=== PATIENT | female | born 1990 | race Caucasian/White ===

== ENCOUNTER 2016-10-22 15:33 | Emergency (ER) | payer BC ==
[2016-10-22 15:46] VITALS: BP 134/83
--- NOTE | 2016-10-22 16:32 | EDM.PDOC ---
ED HPI HEADACHE COMPLAINT - General Chief Complaint: Headache Stated Complaint: HEADACHE, BACK OF HEAD, VISION CHANGES Time Seen by Provider: 10/22/16 16:02 Source of Information: Reports: Patient History Limitations: Reports: No limitations - History of Present Illness INITIAL COMMENTS - FREE TEXT/NARRATIVE: Patient presents for evaluation and treatment of a headache. Patient reports that the headache is located in the right posterior occipital area. She states that she's been having headaches for the last 6 weeks. She says that they are coming and going but feels they're overall worsening in severity. She describes the ache as a throbbing sensation. She describes the pain as "pings of pain". She became concerned when her last 2 days she's felt she has had some blurry vision and has felt that she is having difficulty concentrating and "brain fog ". Patient does not have a history of migraine headaches. She said that she's taken some ibuprofen occasionally but this has not helped with her headaches. She denies any changes in speech, gait, lightheadedness, photophobia, phonophobia, seizures, nausea or vomiting. She denies any recent illnesses. She reports associated symptoms of dizziness. Patient reports that her last menstrual period was January 27, 2015. She denies any chance of . She is currently breast-feeding an [id number] male. Patient wears contacts. Patient reports she has an appointment with her PCP tomorrow, but was more concerned about her symptoms which prompted her ER visit today. Timing/Duration: Reports: waxing/waning, getting worse Location: Reports: occipital (right) Associated Symptoms: Reports: vision changes. Denies: aura, photophobia - Related Data Allergies/ADRs: Allergies Allergy/AdvReac Type Severity Reaction Status Date / Time sulfamethoxazole Allergy Hives Verified 11/07/15 17:55 [From ] trimethoprim [From ] Allergy Hives Verified 11/07/15 17:55 Home Meds: Home Meds Ibuprofen [Motrin] 600 mg PO Q4H PRN #0 tablet 11/09/15 [Rx] Levothyroxine [Synthroid] 50 mcg PO ACBREAKFAST 10/22/16 [History] Sertraline [Zoloft] 25 mg PO DAILY 10/22/16 [History] Past Medical History [employer] History: Reports: Other OB/BYN History: Increased blood pressure Neurological History: Reports: Headaches, chronic Psychiatric History: Reports: Anxiety Other Psychiatric History: Only with Endocrine/Metabolic History: Reports: Hypothyroidism - Past Surgical History HEENT Surgical History: Reports: Oral surgery, Tonsillectomy Social & Family History - Family History Neurological: Reports: Migraines Other Neurological Family History: mother - Tobacco Use Smoking Status *Q: Never Smoker - Caffeine Use Caffeine Use: Reports: Coffee - Recreational Drug Use Recreational Drug Use: No ED ROS GENERAL - Review of Systems Review Of Systems: See Below Constitutional: Reports: malaise. Denies: fever, chills HEENT: Reports: Vision change (reports blurry vision) Cardiovascular: Denies: Lightheadedness GI/Abdominal: Denies: Nausea, Vomiting Musculoskeletal: Denies: neck pain Neurological: Reports: dizziness, headache, other (denies any photophobia or phonophobia). Denies: seizure, change in speech, gait disturbance - Physical Exam Exam: See Below Exam Limited By: No limitations General Appearance: alert, WD/WN, no apparent distress Eye Exam: bilateral eye: EOMI, PERRL Ears: normal external exam, normal canal, hearing grossly normal, normal TMs Nose: normal inspection Throat/Mouth: Normal inspection, Normal lips, Normal teeth, Normal gums, Normal oropharynx, Normal voice, No airway compromise Head Exam: atraumatic, normocephalic Neck: normal inspection, supple, non-tender Respiratory/Chest: no respiratory distress, lungs clear, normal breath sounds Cardiovascular: normal peripheral pulses, regular rate, rhythm, no murmur Neuro Exam (Abbreviated): alert, oriented, CN II-XII intact, normal cognition, normal gait, no motor/sensory deficits, other (normal finger to nose testing, normal heel to streeter testing). No: confused, slow to respond Psychiatric: normal affect, normal mood Skin Exam: Warm, Dry, Normal color Course - Vital Signs Last Recorded V/S: Last Vital Signs Temp 37.1 C 10/22/16 15:42 Pulse 70 10/22/16 15:42 Resp 16 10/22/16 15:42 BP 134/83 10/22/16 15:42 Pulse Ox 100 10/22/16 15:42 - Orders/Labs/Meds Orders: Active Orders 24 hr Category Date Time Status FREE T3 [REF] Stat Lab 10/22/16 16:31 Received Labs: Laboratory Tests 10/22/16 10/22/16 10/22/16 Range/Units 16:31 16:31 16:31 WBC 6.45 (3.98-10.04) K/mm3 RBC 4.52 (3.98-5.22) M/mm3 Hgb 14.2 (11.2-15.7) gm/L Hct 41.4 (34.1-44.9) % MCV 91.6 (79.4-94.8) fl MCH 31.4 (25.6-32.2) pg MCHC 34.3 (32.2-35.5) g/dl RDW Std Deviation 40.9 (36.4-46.3) fL Plt Count 215 (182-369) K/mm3 MPV 10.4 (9.4-12.3) fl Neut % (Auto) 55.2 (34.0-71.1) % Lymph % (Auto) 35.2 (19.3-51.7) % Saline % (Auto) 7.9 (4.7-12.5) % Eos % (Auto) 0.9 (0.7-5.8) Baso % (Auto) 0.8 (0.1-1.2) % Neut # 3.56 (1.56-6.13) K/mm3 Lymph # 2.27 (1.18-3.74) K/mm3 Saline # 0.51 H (0.24-0.36) K/mm3 Eos # 0.06 (0.04-0.36) K/mm3 Baso # 0.05 (0.01-0.08) K/mm3 Sodium 141 (136-145) mEq/L Potassium 3.7 (3.5-5.1) mEq/L Chloride 103 (98-107) mEq/L Carbon Dioxide 27 (21-32) mEq/L Anion Gap 14.7 (5-15) BUN 12 (7-18) mg/dL Creatinine 1.0 (0.55-1.02) mg/dL Est Cr Clr Drug Dosing 64.75 mL/min Estimated GFR (MDRD) > 60 (>60) mL/min BUN/Creatinine Ratio 12.0 L (14-18) Glucose 93 (74-106) mg/dL Calcium 9.4 (8.5-10.1) mg/dL Total Bilirubin 0.7 (0.2-1.0) mg/dL AST 15 (15-37) U/L ALT 17 (14-59) U/L Alkaline Phosphatase 100 (46-116) U/L Total Protein 8.5 H (6.4-8.2) g/dl Albumin 4.6 (3.4-5.0) g/dl Globulin 3.9 gm/dL Albumin/Globulin Ratio 1.2 (1-2) Free T4 0.92 (0.76-1.46) ng/dL TSH 3rd Generation 6.428 H (0.358-3.74) uIU/mL HCG, Quant < 1.0 mIU/mL - Re-Assessments/Exams Free Text/Narrative Re-Assessment/Exam: 10/22/16 18:09 Patient declined medication upon my initial assessment and continues to decline medication for headache. Labs returned. HCG is negative at <1.0 WBC is 6.45, hgb is 14.2 and plts are 215 Sodium is 141, potassium is 3.7, chloride is 103. Anion gap is 14.7. Gluclose is 93 TSH is elevated at 6.428 free t4 is within normal limits at 0.[address] and labs with the patient. Patient reports she is hypothyroid but has not had her TSH checked in several months. She currently sees endocrine in [place] for hypothyroidism. Encouraged her to follow-up with endocrine for further medications changes. Fluids and OTC medications as needed for headache relief. Departure - Departure Time of Disposition: 18:10 Disposition: Home, Self-Care 01 Condition: good Clinical Impression: Headache, Subclinical hypothyroidism Instructions: General Headache Without Cause, Hypothyroidism Referrals: Megan Gonsalves MD [Primary Care Provider] - Forms: ED Department Discharge Additional Instructions: Follow-up with PCP tomorrow. Discuss further options for hypothyroid evaluation. Take [id number] Tylenol, Motrin or Excedrin as needed for headache relief. Rest and drink plenty of fluids. Please return to the ER should your symptoms change or worsen. - My Orders Last 24 Hours: My Active Orders 10/22/16 16:31 FREE T3 [REF] Stat - Assessment/Plan Last 24 Hours: My Active Orders 10/22/16 16:31 FREE T3 [REF] Stat
--- NOTE | 2016-10-22 17:56 | CT ---
Head CT Technique: Multiple axial sections through the brain were obtained. Intravenous contrast was not utilized. Comparison: No previous intracranial imaging. Findings: Ventricles along with basal cisterns and sulci over the convexities are within normal limits for the patient's age. No abnormal parenchymal densities are seen. No evidence of intracranial hemorrhage. No midline shift or mass effect is seen. Several calcifications are seen within the pineal gland which are felt to be incidental. Bone window settings were reviewed which shows no discrete calvarial abnormality. Visualized sinuses are clear. Impression: 1. No acute intracranial abnormality is identified on noncontrast head CT study. Diagnostic code #1
== END 2016-10-22 18:15 | disposition home or self-care (01) ==
LOC: JD.ED 15:33
DX: R51 Headache (principal); E03.9 Hypothyroidism, unspecified; Z88.2 Allergy status to sulfonamides; Z88.6 Allergy status to analgesic agent; Z79.899 Other long term (current) drug therapy; Z98.890 Other specified postprocedural states
CPT/HCPCS: 36415; 70450; 70450-26; 80053; 84439; 84443; 84481; 84702; 85025; 99282; 99284-25